=== PATIENT | male | born 1965 | race Caucasian/White ===

== ENCOUNTER 2019-02-07 23:00 | Emergency (ER) | payer BC, MEDICAID ==
[2019-02-07] MEDS ORDERED: Acetaminophen/HYDROcodone 325-10 MG Tab PO ONE (23:01)
[2019-02-07] MEDS ORDERED: Ondansetron 4 MG/2 ML SDV IV ONE (23:12)
[2019-02-07] MEDS ORDERED: Ketorolac 30 MG/ML SDV IVPUSH ONE (23:12)
[2019-02-07] MEDS ORDERED: Sodium Chloride 0.9% 1,000 ML IV ONE (23:12)
--- NOTE | 2019-02-07 23:16 | EDM.PDOC ---
ED HPI GENERAL MEDICAL PROBLEM - General Chief Complaint: Abdominal Pain Stated Complaint: APPENDICITIS Time Seen by Provider: 02/07/19 23:15 Source of Information: Reports: Patient History Limitations: Reports: No Limitations - History of Present Illness INITIAL COMMENTS - FREE TEXT/NARRATIVE: states was asleep and woke up with left side abd pain now seems to move down a bit. ate roast prior to sleeping. Left Abdominal Pain Score (Numeric/FACES): 10 - Related Data Allergies Allergy/AdvReac Type Severity Reaction Status Date / Time No Known Allergies Allergy Verified 02/07/19 23:29 Home Meds: Home Meds . [No Known Home Meds] 02/07/19 [History] ED ROS GENERAL - Review of Systems Review Of Systems: ROS reveals no pertinent complaints other than HPI. ED EXAM, GI/ABD - Physical Exam Exam: See Below Exam Limited By: No Limitations General Appearance: Alert, WD/WN, Mild Distress, Moderate Distress, Active Emesis Ears: Hearing Grossly Normal Throat/Mouth: Normal Voice, No Airway Compromise Head: Atraumatic Neck: Non-Tender, Full Range of Motion Respiratory/Chest: No Respiratory Distress Cardiovascular: Regular Rate, Rhythm GI/Abdominal Exam: Tender, Other (left side>). No: Distended, Guarding, Rigid, Rebound Neurological: Alert, Oriented, Normal Cognition, Normal Gait, No Motor/Sensory Deficits Psychiatric: Tearful Skin Exam: Warm, Dry, Normal Color Lymphatic: No Adenopathy Course - Vital Signs Last Recorded V/S: Last Vital Signs Temp 35.6 C 02/07/19 23:07 Pulse 83 02/08/19 00:17 Resp 14 02/08/19 00:17 BP 98/73 02/08/19 00:17 Pulse Ox 99 02/07/19 23:07 - Orders/Labs/Meds Labs: Laboratory Tests 02/07/19 02/07/19 02/07/19 Range/Units 00:10 23:14 23:14 WBC 9.1 (5.0-10.0) 10^3/uL RBC 4.58 L (4.6-6.2) 10^6/uL Hgb 15.0 (14.0-18.0) g/dL Hct 43.7 (40.0-54.0) % MCV 95.4 (80-100) fL MCH 32.8 (27.0-34.0) pg MCHC 34.3 (33.0-35.0) g/dL Plt Count 300 (150-450) 10^3/uL Neut % (Auto) 40.9 L (42.2-75.2) % Lymph % (Auto) 44.0 (20.5-50.1) % [place] % (Auto) 10.8 H (2-8) % Eos % (Auto) 3.9 H (1.0-3.0) % Baso % (Auto) 0.4 (0.0-1.0) % Sodium 139 (135-145) mmol/L Potassium 3.7 (3.6-5.0) mmol/L Chloride 102 (101-111) mmol/L Carbon Dioxide 25.0 (21.0-31.0) mmol/L Anion Gap 15.7 BUN 16 (7-18) mg/dL Creatinine 1.0 (0.6-1.3) mg/dL Est Cr Clr Drug Dosing 93.44 mL/min Estimated GFR (MDRD) > 60 BUN/Creatinine Ratio 16.00 Glucose 105 (74-105) mg/dL Lactic Acid (0.5-2.2) mmol/L Calcium 9.2 (8.4-10.2) mg/dl Total Bilirubin 0.6 (0.2-1.0) mg/dL AST 31 (10-42) IU/L ALT 34 (10-60) IU/L Alkaline Phosphatase 49 (42-121) IU/L Total Protein 7.9 (6.7-8.2) g/dl Albumin 4.0 (3.2-5.5) g/dl Globulin 3.9 Albumin/Globulin Ratio 1.03 Urine Color Yellow (YELLOW) Urine Appearance Clear (CLEAR) Urine pH 5.5 (5.0-9.0) Ur Specific [place] 1.025 (1.005-1.030) Urine Protein Negative (NEGATIVE) Urine Glucose (UA) Negative (NEGATIVE) Urine Ketones Trace H (NEGATIVE) Urine Occult Blood Large H (NEGATIVE) Urine Nitrite Negative (NEGATIVE) Urine Bilirubin Negative (NEGATIVE) Urine Urobilinogen 0.2 (0.2-1.0) mg/dL Ur Leukocyte Esterase Negative (NEGATIVE) Urine RBC >100 H /HPF Urine WBC 0-5 (0-5/HPF) /HPF Ur Epithelial Cells Occasional (NOT SEEN) /HPF Urine Bacteria Few (0-FEW/HPF) /HPF Urine Mucus Few H (NOT SEEN) /LPF 02/07/19 Range/Units 23:14 WBC (5.0-10.0) 10^3/uL RBC (4.6-6.2) 10^6/uL Hgb (14.0-18.0) g/dL Hct (40.0-54.0) % MCV (80-100) fL MCH (27.0-34.0) pg MCHC (33.0-35.0) g/dL Plt Count (150-450) 10^3/uL Neut % (Auto) (42.2-75.2) % Lymph % (Auto) (20.5-50.1) % [place] % (Auto) (2-8) % Eos % (Auto) (1.0-3.0) % Baso % (Auto) (0.0-1.0) % Sodium (135-145) mmol/L Potassium (3.6-5.0) mmol/L Chloride (101-111) mmol/L Carbon Dioxide (21.0-31.0) mmol/L Anion Gap BUN (7-18) mg/dL Creatinine (0.6-1.3) mg/dL Est Cr Clr Drug Dosing mL/min Estimated GFR (MDRD) BUN/Creatinine Ratio Glucose (74-105) mg/dL Lactic Acid 1.6 (0.5-2.2) mmol/L Calcium (8.4-10.2) mg/dl Total Bilirubin (0.2-1.0) mg/dL AST (10-42) IU/L ALT (10-60) IU/L Alkaline Phosphatase (42-121) IU/L Total Protein (6.7-8.2) g/dl Albumin (3.2-5.5) g/dl Globulin Albumin/Globulin Ratio Urine Color (YELLOW) Urine Appearance (CLEAR) Urine pH (5.0-9.0) Ur Specific [place] (1.005-1.030) Urine Protein (NEGATIVE) Urine Glucose (UA) (NEGATIVE) Urine Ketones (NEGATIVE) Urine Occult Blood (NEGATIVE) Urine Nitrite (NEGATIVE) Urine Bilirubin (NEGATIVE) Urine Urobilinogen (0.2-1.0) mg/dL Ur Leukocyte Esterase (NEGATIVE) Urine RBC /HPF Urine WBC (0-5/HPF) /HPF Ur Epithelial Cells (NOT SEEN) /HPF Urine Bacteria (0-FEW/HPF) /HPF Urine Mucus (NOT SEEN) /LPF Meds: Medications Discontinued Medications Generic Name Dose Route Start Last Admin Trade Name Freq PRN Reason Stop Dose Admin Hydrocodone Bitart/Acetaminophen 1 tab 02/08/19 00:47 02/08/19 00:51 [place] 325-10 Mg PO 02/08/19 00:48 1 tab ONETIME ONE Administration Sodium Chloride 1,000 mls @ 999 mls/hr 02/07/19 23:12 02/07/19 23:18 Normal Saline IV 02/08/19 00:12 999 mls/hr .BOLUS ONE Administration Sodium Chloride 1,000 mls @ 999 mls/hr 02/08/19 00:00 02/08/19 00:16 Normal Saline IV 02/08/19 01:00 999 mls/hr .BOLUS ONE Administration Ketorolac Tromethamine 30 mg 02/07/19 23:12 02/07/19 23:19 Toradol IVPUSH 02/07/19 23:13 30 mg ONETIME ONE Administration Ondansetron HCl 4 mg 02/07/19 23:12 02/07/19 23:21 Zofran IV 02/07/19 23:13 4 mg ONETIME ONE Administration - Re-Assessments/Exams Free Text/Narrative Re-Assessment/Exam: 02/08/19 01:39 results discussed with pt & spouse. pt is pain free presently. Departure - Departure Time of Disposition: 01:39 Disposition: Home, Self-Care 01 Condition: Good Clinical Impression: Ureteral calculus, left - Discharge Information Instructions: Kidney Stones, [id number] Forms: ED Department Discharge Additional Instructions: 1) drink lots of liquids 2) follow up with family doctor Monday 3) return if develop fever, increase back pain, problem urinating or any change or concern rx given; vicodin 5/325mg bid to tid prn x 12
[2019-02-07 23:41] LABS: ANION GAP 15.7; CHLORIDE,CL 102 mmol/L (101-111); SODIUM,NA 139 mmol/L (135-145)
[2019-02-08] MEDS ORDERED: Sodium Chloride 0.9% 1,000 ML IV ONE
[2019-02-08] MEDS ORDERED: Acetaminophen/HYDROcodone 325-10 MG Tab PO ONE (00:47)
[2019-02-08] MEDS ORDERED: Acetaminophen/HYDROcodone 325-10 MG Tab ONE (01:41)
== END 2019-02-08 01:50 | disposition home or self-care (01) ==
LOC: DL.ED 23:00
DX: N13.2 Hydronephrosis with renal and ureteral calculous obstruction (principal)
CPT/HCPCS: 36415; 74176; 80053; 81001; 83605; 85025; 96361; 96374; 96375; 99284; A9270; J1885; J2405; J7030

== ENCOUNTER 2020-11-30 11:38 | Emergency (ER) | payer MEDICAID | END 2020-11-30 14:03 | LOC: DL.ED 11:38 | DX: M25.511 Pain in right shoulder (principal); Z53.21 Procedure and treatment not carried out due to patient leaving prior to being seen by health care provider ==

== ENCOUNTER 2021-04-18 14:22 | Emergency (ER) | payer MEDICAID ==
[2021-04-18] MEDS ORDERED: Sodium Chloride 0.9% 10 ML Syringe FLUSH PRN (15:07)
[2021-04-18] MEDS ORDERED: Ondansetron 4 MG/2 ML SDV IV ONE (15:07)
[2021-04-18] MEDS ORDERED: HYDROmorphone 1 MG/ML Syringe IVPUSH ONE (15:07)
[2021-04-18] MEDS ORDERED: Ketorolac 30 MG/ML SDV IVPUSH ONE (15:07)
[2021-04-18] MEDS ORDERED: Sodium Chloride 0.9% 1,000 ML IV ONE (15:07)
[2021-04-18] MEDS ORDERED: Tamsulosin 0.4 MG Cap.ER PO ONE (15:08)
--- NOTE | 2021-04-18 15:46 | CT ---
PROCEDURE INFORMATION: Exam: CT Abdomen And Pelvis Without Contrast Exam date and time: 04/18/2021 3:16 PM Age: 55 years old Clinical indication: Other: Sinus pain/pressure, bloody mucus drainage; Additional info: Left flank pain, HX of kidney stones TECHNIQUE: Imaging protocol: Computed tomography of the abdomen and pelvis without contrast. Radiation optimization: All CT scans at this facility use at least one of these dose optimization techniques: automated exposure control; mA and/or kV adjustment per patient size (includes targeted exams where dose is matched to clinical indication); or iterative reconstruction. COMPARISON: Prior CT abdomen and pelvis of 02/08/2019 FINDINGS: Limitations: Streak artifact from an arthroplasty device. Lungs: No significant abnormality in the visualized lung bases. Liver: No significant abnormality. Gallbladder and bile ducts: No significant abnormality. Pancreas: No significant abnormality. Spleen: No significant abnormality. Adrenal glands: No significant abnormality. Kidneys and ureters: Simple-appearing low density lesion in the left kidney, most likely a benign renal cyst. No followup is necessary, based on the imaging findings. See comment below. No acute abnormality. No renal stones, hydronephrosis, or hydroureter seen. Stomach and bowel: Colonic diverticulosis, with no evidence of acute diverticulitis.No acute abnormality. No acute abnormality of the stomach or duodenum. No acute abnormality of the small bowel. Appendix: Appendix is seen, and is within normal limits in appearance. Intraperitoneal space: No evidence of free air or free fluid. Vasculature: No acute abnormality, allowing for unenhanced technique. Lymph nodes: No evidence of diffuse pathologic lymphadenopathy. Urinary bladder: No significant abnormality. Reproductive: No significant abnormality. Bones/joints: Arthroplasty device in the right left hip. No acute bony abnormality. Soft tissues: Small umbilical hernia, containing only fat. IMPRESSION: 1. No evidence of a significant acute abnormality. 2. See above for remaining chronic and/or incidental findings. COMMENTS: Consistent with the [employer]'s Incidental Findings Committee white paper (J Am Cara Radiol 2018): Any incidental renal lesion less than 1 cm or classified as too small to characterize, or any incidental cystic renal lesion characterized as simple-appearing, is likely benign. No follow-up imaging is recommended for these lesions per consensus recommendations based on imaging criteria.
[2021-04-18 15:49] LABS: ANION GAP 8.4 mEq/L (7-13); CHLORIDE,CL 98 mmol/L (98-107); SODIUM,NA 133 mmol/L (136-145)
[2021-04-18] MEDS ORDERED: Cyclobenzaprine 10 MG Tab PO ONE (16:17)
[2021-04-18] MEDS ORDERED: Dexamethasone 4 MG Tab PO ONE (16:17)
--- NOTE | 2021-04-18 16:24 | EDM.PDOC ---
"Scribed by Hannah Norwood 04/18/21 [id number] for Anthony Hermosillo MD ED HPI GENERAL MEDICAL PROBLEM - General Chief Complaint: Genitourinary Problem Stated Complaint: KIDNEY STONES Time Seen by Provider: 04/18/21 15:04 Source of Information: Reports: Patient, RN, RN Notes Reviewed History Limitations: Reports: No Limitations - History of Present Illness INITIAL COMMENTS - FREE TEXT/NARRATIVE: Patient presents to ED by POV with 3 to 4 days of left flank that radiates to the left groin. It feels like past kidney stone. Denies fall, injury, loss of bowel or bladder control, saddle area numbness, or motor weakness. Rates pain 8/10 at max. intensity. Onset: Gradual Duration: Intermittent, Waxing/Waning Location: Reports: Back, Other (left flank) Quality: Reports: Ache Severity: Severe Improves with: Reports: None Worsens with: Reports: None Associated Symptoms: Reports: No Other Symptoms Left Flank Pain Score (Numeric/FACES): 8 - Related Data Allergies Allergy/AdvReac Type Severity Reaction Status Date / Time No Known Allergies Allergy Verified 04/18/21 15:14 Home Meds: Home Meds . [No Known Home Meds] 02/07/19 [History] Past Medical History HEENT History: Reports: Impaired Vision Musculoskeletal History: Reports: Fracture, Other (See Below) Other Musculoskeletal History: Fx left ankle , left arm and left mecarpal. Dermatologic History: Reports: Eczema Social & Family History - Caffeine Use Caffeine Use: Reports: Coffee ED ROS GENERAL - Review of Systems Review Of Systems: Comprehensive ROS is negative, except as noted in HPI. ED EXAM, RENAL/ - Physical Exam Exam: See Below Exam Limited By: No Limitations General Appearance: Alert, WD/WN, No Apparent Distress Throat/Mouth: Normal Voice, No Airway Compromise Head: Atraumatic, Normocephalic Neck: Normal Inspection, Supple, Non-Tender, Full Range of Motion Respiratory/Chest: No Respiratory Distress, Lungs Clear Cardiovascular: Normal Peripheral Pulses, Regular Rate, Rhythm GI/Abdominal: Normal Bowel Sounds, Soft, Non-Tender, No Organomegaly, No Distention, No Abnormal Bruit, No Mass Back Exam: Full Range of Motion, CVA Tenderness (L). No: CVA Tenderness (R) Extremities: Normal Inspection Neurological: Alert, Oriented, Normal Gait, No Motor/Sensory Deficits Psychiatric: Normal Affect, Normal Mood Skin Exam: Warm, Dry, Intact, Normal Color, No Rash Course - Vital Signs Last Recorded V/S: Last Vital Signs Temp 98.2 F 04/18/21 15:14 Pulse 94 04/18/21 15:14 Resp 20 04/18/21 15:14 BP 140/103 H 04/18/21 15:14 Pulse Ox 97 04/18/21 15:14 - Orders/Labs/Meds Orders: Active Orders 24 hr Category Date Time Status Peripheral IV Care [RC] . DIRECTED Care 04/18/21 15:07 Active Cyclobenzaprine [Flexeril] Med 04/18/21 16:17 Once 10 mg PO ONETIME ONE Sodium Chloride 0.9% [Saline Flush] Med 04/18/21 15:07 Active 10 ml FLUSH ASDIRECTED PRN dexAMETHasone Med 04/18/21 16:17 Once 8 mg PO ONETIME ONE Peripheral IV Insertion Adult [OM.PC] Stat Oth 04/18/21 15:07 Ordered Medication Orders Sodium Chloride (Sodium Chloride 0.9% 10 Ml Syringe) 10 ml FLUSH ASDIRECTED PRN PRN Reason: Keep Vein Open Last Admin: 04/18/21 15:36 Dose: 10 ml Documented by: DANAE Labs: Laboratory Tests 04/18/21 04/18/21 04/18/21 Range/Units 15:10 15:10 15:10 WBC 8.7 (5.0-10.0) 10^3/uL RBC 4.77 (4.6-6.2) 10^6/uL Hgb 15.3 (14.0-18.0) g/dL Hct 46.1 (40.0-54.0) % MCV 96.6 (80-100) fL MCH 32.1 (27.0-34.0) pg MCHC 33.2 (33.0-35.0) g/dL Plt Count 245 (150-450) 10^3/uL Neut % (Auto) 52.5 (42.2-75.2) % Lymph % (Auto) 33.9 (20.5-50.1) % [place] % (Auto) 10.3 H (2-8) % Eos % (Auto) 3.1 H (1.0-3.0) % Baso % (Auto) 0.2 (0.0-1.0) % Sodium 133 L (136-145) mmol/L Potassium 4.4 (3.5-5.1) mmol/L Chloride 98 (98-107) mmol/L Carbon Dioxide 31 (21-32) mmol/L Anion Gap 8.4 (7-13) mEq/L BUN 17 (7-18) mg/dL Creatinine 0.96 (0.70-1.30) mg/dL Est Cr Clr Drug Dosing 93.69 mL/min Estimated GFR (MDRD) > 60 Glucose 91 (70-99) mg/dL Calcium 9.3 (8.5-10.1) mg/dL Urine Color Yellow (YELLOW) Urine Appearance Clear (CLEAR) Urine pH 7.5 (5.0-9.0) Ur Specific [place] 1.020 (1.005-1.030) Urine Protein Negative (NEGATIVE) Urine Glucose (UA) Negative (NEGATIVE) Urine Ketones Negative (NEGATIVE) Urine Occult Blood Negative (NEGATIVE) Urine Nitrite Negative (NEGATIVE) Urine Bilirubin Negative (NEGATIVE) Urine Urobilinogen 0.2 (0.2-1.0) mg/dL Ur Leukocyte Esterase Negative (NEGATIVE) Meds: Medications Generic Name Dose Route Start Last Admin Trade Name Freq PRN Reason Stop Dose Admin Sodium Chloride 10 ml 04/18/21 15:07 04/18/21 15:36 Sodium Chloride 0.9% 10 Ml Syringe FLUSH 10 ml ASDIRECTED PRN Administration Keep Vein Open Discontinued Medications Generic Name Dose Route Start Last Admin Trade Name Freq PRN Reason Stop Dose Admin Hydromorphone HCl 1 mg 04/18/21 15:07 04/18/21 15:38 Hydromorphone 1 Mg/Ml Syringe IVPUSH 04/18/21 15:08 1 mg ONETIME ONE Administration Sodium Chloride 1,000 mls @ 999 mls/hr 04/18/21 15:07 04/18/21 15:37 Normal Saline IV 04/18/21 16:07 999 mls/hr .BOLUS ONE Administration Ketorolac Tromethamine 30 mg 04/18/21 15:07 04/18/21 15:37 Ketorolac 30 Mg/Ml Sdv IVPUSH 04/18/21 15:08 30 mg ONETIME ONE Administration Ondansetron HCl 4 mg 04/18/21 15:07 04/18/21 15:37 Ondansetron 4 Mg/2 Ml Sdv IV 04/18/21 15:08 4 mg ONETIME ONE Administration Tamsulosin HCl 0.4 mg 04/18/21 15:08 04/18/21 15:37 Tamsulosin 0.4 Mg Cap.Er PO 04/18/21 15:09 0.4 mg ONETIME ONE Administration - Radiology Interpretation Free Text/Narrative:: [facility] Final Radiology Report Call: [phone] assistance Online chat: [email or web address] Name: FABI DONNELLY Age: 55Years M Date: 04/18/2021 SSN: -- : [id number] Study: CT ABDOMEN PELVIS WO CONT Requesting Physician: ANTHONY HERMOSILLO Images: [id number] Addl Studies: Provided Clinical History: Left flank pain, Hx of kidney stones Contrast: Without Contrast Medium: Contrast Amount: Contrast Method: Page 1 of 2 PROCEDURE INFORMATION: Exam: CT Abdomen And Pelvis Without Contrast Exam date and time: 04/18/2021 3:16 PM Age: 55 years old Clinical indication: Other: Sinus pain/pressure, bloody mucus drainage; Additional info: Left flank pain, HX of kidney stones TECHNIQUE: Imaging protocol: Computed tomography of the abdomen and pelvis without contrast. Radiation optimization: All CT scans at this facility use at least one of these dose optimization techniques: automated exposure control; mA and/or kV adjustment per patient size (includes targeted exams where dose is matched to clinical indication); or iterative reconstruction. COMPARISON: Prior CT abdomen and pelvis of 02/08/2019 FINDINGS: Limitations: Streak artifact from an arthroplasty device. Lungs: No significant abnormality in the visualized lung bases. Liver: No significant abnormality. Gallbladder and bile ducts: No significant abnormality. Pancreas: No significant abnormality. Spleen: No significant abnormality. Adrenal glands: No significant abnormality. Kidneys and ureters: Simple-appearing low density lesion in the left kidney, most likely a benign renal cyst. No followup is necessary, based on the imaging findings. See comment below. No acute abnormality. No renal stones, hydronephrosis, or hydroureter seen. BALL, FABI | Final Radiology Report CONFIDENTIALITY STATEMENT This report is intended only for use by the referring physician, and only in acc ordance with law. If you received this in error, call [phone]. Page 2 of 2 Stomach and bowel: Colonic diverticulosis, with no evidence of acute diverticulitis.No acute abnormality. No acute abnormality of the stomach or duodenum. No acute abnormality of the small bowel. Appendix: Appendix is seen, and is within normal limits in appearance. Intraperitoneal space: No evidence of free air or free fluid. Vasculature: No acute abnormality, allowing for unenhanced technique. Lymph nodes: No evidence of diffuse pathologic lymphadenopathy. Urinary bladder: No significant abnormality. Reproductive: No significant abnormality. Bones/joints: Arthroplasty device in the right left hip. No acute bony abnormality. Soft tissues: Small umbilical hernia, containing only fat. IMPRESSION: 1. No evidence of a significant acute abnormality. 2. See above for remaining chronic and/or incidental findings. COMMENTS: Consistent with the [employer]'s Incidental Findings Committee white paper (J Am Cara Radiol 2018): Any incidental renal lesion less than 1 cm or classified as too small to characterize, or any incidental cystic renal lesion characterized as simple- appearing, is likely benign. No follow-up imaging is recommended for these lesions per consensus recommendations based on imaging criteria. Thank you for allowing us to participate in the care of your patient. Dictated and Authenticated by: Awilda Aldana MD 04/18/2021 3:46 PM Central Time ([place] & [place]) - Re-Assessments/Exams Free Text/Narrative Re-Assessment/Exam: 04/18/21 16:20 Negative lab work up, clear urine, no acute findings on CT. Likely mechanical back pain radiating to left groin. Could be a developing process to early to identify. Plan to tx pt symptomatically and instruct him to f/u in clinic in 2 to 3 days for recheck and repeat UA at that time. Departure - Departure Time of Disposition: 16:22 Disposition: Home, Self-Care 01 Condition: Good Clinical Impression: Acute radicular low back pain - Discharge Information *PRESCRIPTION DRUG MONITORING PROGRAM REVIEWED*: Not Applicable *COPY OF PRESCRIPTION DRUG MONITORING REPORT IN PATIENT BOLIVAR: Not Applicable Instructions: Acute Back Pain, Adult, Radicular Pain Forms: ED Department Discharge Additional Instructions: Rx: Cyclobenzaprine 10mg *Do not drive while taking this medication. Rx: Dexamethasone 4mg Follow up in clinic in 2 to 3 days for recheck, and ask your doctor to repeat the urine test. Sepsis Event Note (ED) - Focused Exam Vital Signs: Vital Signs Temp Pulse Resp BP Pulse Ox 04/18/21 15:14 98.2 F 94 20 140/103 H 97 - My Orders Last 24 Hours: My Active Orders 04/18/21 15:07 Peripheral IV Care [RC] . DIRECTED Sodium Chloride 0.9% [Saline Flush] 10 ml FLUSH ASDIRECTED PRN Peripheral IV Insertion Adult [OM.PC] Stat 04/18/21 16:17 Cyclobenzaprine [Flexeril] 10 mg PO ONETIME ONE dexAMETHasone 8 mg PO ONETIME ONE - Assessment/Plan Last 24 Hours: My Active Orders 04/18/21 15:07 Peripheral IV Care [RC] . DIRECTED Sodium Chloride 0.9% [Saline Flush] 10 ml FLUSH ASDIRECTED PRN Peripheral IV Insertion Adult [OM.PC] Stat 04/18/21 16:17 Cyclobenzaprine [Flexeril] 10 mg PO ONETIME ONE dexAMETHasone 8 mg PO ONETIME ONE I have read and agree with the documentation that has been completed regarding this visit. By signing this record, I attest that the documentation was completed in my physical presence and is an accurate record of the encounter."
== END 2021-04-18 16:57 | disposition home or self-care (01) ==
LOC: DL.ED 14:22
DX: M54.50 Low back pain, unspecified (principal)
CPT/HCPCS: 36415; 74176; 80048; 81003; 85025; 96374; 96375; 99284; A9270; J1170; J1885; J2405; J7030; J8540